=== PATIENT | female | born 1990 | race Caucasian/White ===

== ENCOUNTER 2017-06-15 01:00 | Inpatient (IN) | payer BC ==
[2017-06-15] MEDS ORDERED: Morphine 10 MG/ML Syringe IM ONE (01:59)
[2017-06-15] MEDS ORDERED: Lactated Ringers 1,000 ML IV SCH ×3 (02:00→05:01)
[2017-06-15] MEDS ORDERED: hydrOXYzine HCl 25 MG/ML SDV IM ONE (02:00)
[2017-06-15] MEDS ORDERED: Ampicillin 2 GM in Sodium Chloride 0.9% 100 ML IV ONE ×2 (02:30→02:45)
[2017-06-15] MEDS: Lactated Ringers 1,000 ML IV SCH ×2 (04:40→05:50)
[2017-06-15] MEDS ORDERED: Sodium Chloride 0.9% 10 ML Syringe FLUSH PRN (04:49)
[2017-06-15] MEDS ORDERED: Oxytocin/Lactated Ringers 10 UNIT/1,000 ML BAG IV SCH (05:00)
--- NOTE | 2017-06-15 05:05 | PCM.PREANE ---
Preanesthetic Assessment - Procedure Proposed Procedure: Labor Epidural - Anesthesia/Transfusion/Family Hx Anesthesia History: Prior Anesthesia Without Reaction Family History of Anesthesia Reaction: No Transfusion History: No Prior Transfusion(s) Intubation History: Unknown - Review of Systems General: No Symptoms Pulmonary: No Symptoms Cardiovascular: No Symptoms Gastrointestinal: Other (GERD- pepcid controls it ) Neurological: No Symptoms Other: Reports: Easy Bruising - Physical Assessment NPO Status Date: 06/15/17 NPO Status Time: 02:00 Respiratory Rate: 16 Vital Signs: Last Vital Signs Temp 37.3 C 06/15/17 01:53 Pulse 84 06/15/17 01:53 Resp 16 06/15/17 01:53 BP 135/85 06/15/17 01:53 Pulse Ox Height: 1.7 m Weight: 73.028 kg ASA Class: 2 Mental Status: Alert & Oriented x3 Airway Class: Mallampati = 1 Dentition: Reports: Normal Dentition ROM/Head Extension: Full Lungs: Clear to Auscultation, Normal Respiratory Effort Cardiovascular: Regular Rate, Regular Rhythm - Lab Values: Laboratory Last Values WBC 16.22 K/mm3 (3.98-10.04) H 06/15/17 02:12 RBC 4.01 M/mm3 (3.98-5.22) 06/15/17 02:12 Hgb 12.2 gm/L (11.2-15.7) 06/15/17 02:12 Hct 34.9 % (34.1-44.9) 06/15/17 02:12 MCV 87.0 fl (79.4-94.8) 06/15/17 02:12 MCH 30.4 pg (25.6-32.2) 06/15/17 02:12 MCHC 35.0 g/dl (32.2-35.5) 06/15/17 02:12 RDW Std Deviation 38.9 fL (36.4-46.3) 06/15/17 02:12 Plt Count 185 K/mm3 (182-369) 06/15/17 02:12 MPV 11.8 fl (9.4-12.3) 06/15/17 02:12 Neut % (Auto) 82.1 % (34.0-71.1) H 06/15/17 02:12 Lymph % (Auto) 10.8 % (19.3-51.7) L 06/15/17 02:12 [place] % (Auto) 5.9 % (4.7-12.5) 06/15/17 02:12 Eos % (Auto) 0.1 (0.7-5.8) L 06/15/17 02:12 Baso % (Auto) 0.2 % (0.1-1.2) 06/15/17 02:12 Neut # (Auto) 13.33 K/mm3 (1.56-6.13) H 06/15/17 02:12 Lymph # (Auto) 1.75 K/mm3 (1.18-3.74) 06/15/17 02:12 [place] # (Auto) 0.95 K/mm3 (0.24-0.36) H 06/15/17 02:12 Eos # (Auto) 0.02 K/mm3 (0.04-0.36) L 06/15/17 02:12 Baso # (Auto) 0.03 K/mm3 (0.01-0.08) 06/15/17 02:12 Manual Slide Review Normal smear 06/15/17 02:12 Blood Type O POSITIVE 06/15/17 02:12 Gel Antibody Screen Positive 06/15/17 02:12 - Allergies Allergies/Adverse Reactions: Allergies Allergy/AdvReac Type Severity Reaction Status Date / Time bee venom protein (honey bee) Allergy Anaphylactic Verified 05/11/17 15:35 Shock - Blood Blood Available: No Product(s) Available: None - Anesthesia Plan Pre-Op Medication Ordered: None - Acknowledgements Anesthesia Type Planned: Epidural Pt an Appropriate Candidate for the Planned Anesthesia: Yes Alternatives and Risks of Anesthesia Discussed w Pt/Guardian: Yes Pt/Guardian Understands and Agrees with Anesthesia Plan: Yes PreAnesthesia Questionnaire - Past Health History Medical/Surgical History: Denies Medical/Surgical History - SUBSTANCE USE Smoking Status *Q: Never Smoker Second Hand Smoke Exposure: No Recreational Drug Use History: No - HOME MEDS Home Medications: Home Meds EPINEPHrine [Epipen] 0.3 mg IM ASDIRECTED PRN #1 ml 06/07/15 [Rx] Famotidine [Pepcid] 20 mg PO Q12H #30 tablet 06/07/15 [Rx] PNV95/Ferrous Fumarate/FA [ Tablet] 1 each PO DAILY 05/11/17 [History] - CURRENT (IN HOUSE) MEDS Current Meds: Current Medications Ampicillin Sodium 1 gm/ Sodium (Chloride) 100 mls @ 200 mls/hr IV Q4H GERARD Lactated Ringer's (Ringers, Lactated) 1,000 mls @ 125 mls/hr IV ASDIRECTED GERARD Lactated Ringer's (Ringers, Lactated) 1,000 mls @ 100 mls/hr IV ASDIRECTED GERARD Oxytocin/Lactated Ringer's (Pitocin In Lr 10 Units/1,000 Ml) 10 unit in 1,000 mls @ 500 mls/hr IV .CONTINUOUS GERARD PRN Reason: Protocol Sodium Chloride (Saline Flush) 10 ml FLUSH ASDIRECTED PRN PRN Reason: Keep Vein Open Discontinued Medications Hydroxyzine HCl (Vistaril) 50 mg IM ONETIME ONE Stop: 06/15/17 02:01 Last Admin: 06/15/17 02:25 Dose: 50 mg Lactated Ringer's (Ringers, Lactated) 1,000 mls @ 500 mls/hr IV ASDIRECTED GERARD Stop: 06/15/17 03:00 Last Admin: 06/15/17 02:20 Dose: 500 mls/hr Lactated Ringer's (Ringers, Lactated) 1,000 mls @ 250 mls/hr IV ASDIRECTED GERARD Stop: 06/15/17 05:00 Last Admin: 06/15/17 03:20 Dose: 250 mls/hr Ampicillin Sodium 2 gm/ Sodium (Chloride) 100 mls @ 200 mls/hr IV ONETIME ONE Stop: 06/15/17 03:14 Last Admin: 06/15/17 03:00 Dose: 200 mls/hr Morphine Sulfate (Morphine) 10 mg IM ONETIME ONE Stop: 06/15/17 02:00 Last Admin: 06/15/17 02:24 Dose: 10 mg
[2017-06-15] MEDS ORDERED: Ondansetron 4 MG/2 ML SDV IVPUSH PRN (05:08)
[2017-06-15] MEDS ORDERED: diphenhydrAMINE 50 MG/ML SDV IVPUSH PRN (05:08)
[2017-06-15] MEDS ORDERED: fentaNYL 100 MCG/2 ML SDV EPIDUR PRN (05:08)
[2017-06-15] MEDS ORDERED: ePHEDrine 50 MG/ML SDV IVPUSH PRN (05:08)
[2017-06-15] MEDS ORDERED: Bupivacaine/fentaNYL/NS 100 ML Bag EPIDUR SCH (05:15)
[2017-06-15] MEDS: Ampicillin 1 GM in Sodium Chloride 0.9% 100 ML IV SCH ×3 (06:44→17:54)
--- NOTE | 2017-06-15 10:15 | PCM.LDHP ---
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 meconium-stained amnionic fluid GBS positive. O+ rubella immune syphilis negative hepatitis B surface antigen nonreactive HIV nonreactive, GC negative Chlamydia negative initial hemoglobin and hematocrit 13.8/39.5 platelets 264, 000 and by screen also -04/08/17 hemoglobin 12.61 hour OB glucose screen 71. Plan delivery Pain Score: 0 Improves with: Reports: None Worsens with: Reports: None Associated Symptoms: Reports: N - Related Data Allergies/Adverse Reactions: Allergies Allergy/AdvReac Type Severity Reaction Status Date / Time bee venom protein (honey bee) Allergy Anaphylactic Verified 05/11/17 15:35 Shock Home Medications: Home Meds EPINEPHrine [Epipen] 0.3 mg IM ASDIRECTED PRN #1 ml 06/07/15 [Rx] Famotidine [Pepcid] 20 mg PO Q12H #30 tablet 06/07/15 [Rx] PNV95/Ferrous Fumarate/FA [ Tablet] 1 each PO DAILY 05/11/17 [History] Past Medical History - Past Health History Medical/Surgical History: Denies 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 Para: 0 (0000) - Past Surgical History HEENT Surgical History: Reports: Oral Surgery Other HEENT Surgeries/Procedures: [place] teeth removed 2013 Social & Family History - Family History Family Medical History: Noncontributory - Tobacco Use Smoking Status *Q: Never Smoker Second Hand Smoke Exposure: No - Caffeine Use Caffeine Use: Reports: Other Other Caffeine Use: occasional soda/coffee - Recreational Drug Use Recreational Drug Use: No H&P Review of Systems - Review of Systems: Review Of Systems: See Below General: Reports: No Symptoms HEENT: Reports: No Symptoms Pulmonary: Reports: No Symptoms Cardiovascular: Reports: No Symptoms Gastrointestinal: Reports: No Symptoms Genitourinary: Reports: No Symptoms Musculoskeletal: Reports: No Symptoms Skin: Reports: No Symptoms Psychiatric: Reports: No Symptoms Neurological: Reports: No Symptoms Hematologic/Lymphatic: Reports: No Symptoms Immunologic: Reports: No Symptoms L&D Exam - Exam Exam: See Below - Vital Signs Vital Signs: Last Vital Signs Temp 99.2 F 06/15/17 01:53 Pulse 84 06/15/17 01:53 Resp 16 06/15/17 06:01 BP 135/85 06/15/17 01:53 Pulse Ox Weight: 161 lb - OB Specific Fundal Height In cm: 39 Contraction Duration (sec): 60 Contraction Frequency (min): 2 Contraction Intensity: Moderate to Strong Movement: Active Heart Tones: Present Heart Tones per Min: 130 Heart Rate (FHR) Variability: Moderate (6-25 bmp) Presentation: Vertex - Garcia Score Garcia Score Cervix Position: Posterior Garcia Score Consistency: Soft Garcia Score Effacement: >80% Garcia Score Dilation: > 5 cm Garcia Score Infant's Station: +1, +2 Garcia Score Total: 11 - Exam General: Alert, Oriented HEENT: Conjunctiva Clear, Mucosa Moist & [place] Neck: Supple, Trachea Midline Lungs: Clear to Auscultation, Normal Respiratory Effort Cardiovascular: Regular Rate, Regular Rhythm GI/Abdominal Exam: Normal Bowel Sounds, Soft, Non-Tender, No Organomegaly, No Distention, No Abnormal Bruit, No Mass, Pelvis Stable Genitourinary: Normal external exam, Normal bimanual exam, Normal speculum exam Extremities: Normal Inspection, Normal Range of Motion, Non-Tender, No Pedal Edema, Normal Capillary Refill Skin: Warm, Dry, Intact Neurological: Cranial Nerves Intact, Reflexes Equal Bilateral Psychiatric: Alert, Normal Affect, Normal Mood - Patient Data Lab Results Last 24 hrs: Laboratory Results - last 24 hr 06/15/17 06/15/17 Range/Units 02:12 02:12 WBC 16.22 H (3.98-10.04) K/mm3 RBC 4.01 (3.98-5.22) M/mm3 Hgb 12.2 (11.2-15.7) gm/L Hct 34.9 (34.1-44.9) % MCV 87.0 (79.4-94.8) fl MCH 30.4 (25.6-32.2) pg MCHC 35.0 (32.2-35.5) g/dl RDW Std Deviation 38.9 (36.4-46.3) fL Plt Count 185 (182-369) K/mm3 MPV 11.8 (9.4-12.3) fl Neut % (Auto) 82.1 H (34.0-71.1) % Lymph % (Auto) 10.8 L (19.3-51.7) % [place] % (Auto) 5.9 (4.7-12.5) % Eos % (Auto) 0.1 L (0.7-5.8) Baso % (Auto) 0.2 (0.1-1.2) % Neut # (Auto) 13.33 H (1.56-6.13) K/mm3 Lymph # (Auto) 1.75 (1.18-3.74) K/mm3 [place] # (Auto) 0.95 H (0.24-0.36) K/mm3 Eos # (Auto) 0.02 L (0.04-0.36) K/mm3 Baso # (Auto) 0.03 (0.01-0.08) K/mm3 Manual Slide Review Normal smear Blood Type O POSITIVE Gel Antibody Screen Positive Result Diagrams: 06/15/17 02:12 - Problem List (1) GBS carrier SNOMED Code(s): 5303735980400 ICD Code: Z22.330 - CARRIER OF GROUP B STREPTOCOCCUS Status: Acute Current Visit: Yes (2) 39 weeks gestation of SNOMED Code(s): 26486243 ICD Code: Z3A.39 - 39 WEEKS GESTATION OF Status: Acute Current Visit: Yes Problem List Initiated/Reviewed/Updated: No Orders Last 24hrs: Active Orders 24 hr Category Date Time Status Patient Status [ADT] Routine ADT 06/15/17 04:49 Active Activity as Tolerated [RC] PFP Care 06/15/17 04:49 Active Communication Order [RC] ASDIRECTED Care 06/15/17 04:49 Active Heart Tones [RC] ASDIRECTED Care 06/15/17 04:49 Active Notify Provider [RC] PFP Care 06/15/17 04:49 Active Notify Provider [RC] PRN Care 06/15/17 04:49 Active Peripheral IV Care [RC] . DIRECTED Care 06/15/17 04:49 Active Vital Signs [RC] PER UNIT ROUTINE Care 06/15/17 01:53 Active ANTIBODY IDENTIFICATION [BBK] Routine Lab 06/15/17 02:12 Results PATIENT RETYPE [BBK] Routine Lab 06/15/17 02:12 Results TYPE AND SCREEN [BBK] Routine Lab 06/15/17 02:12 Results Ampicillin 1 gm Med 06/15/17 06:30 Active Sodium Chloride 0.9% [Normal Saline] 100 ml IV Q4H Bupivacaine/fentaNYL/NS [fentaNYL/Bupivacaine/NS 2 MCG- Med 06/15/17 05:15 Active 0.125% 100 ML] 100 ml EPIDUR ASDIRECTED Lactated Ringers [Ringers, Lactated] 1,000 ml Med 06/15/17 05:00 Active IV ASDIRECTED Lactated Ringers [Ringers, Lactated] 1,000 ml Med 06/15/17 05:01 Active IV ASDIRECTED Ondansetron [Zofran] Med 06/15/17 05:08 Active 4 mg IVPUSH ONETIME PRN Oxytocin/Lactated Ringers [Pitocin in LR 10 Units/1,000 Med 06/15/17 05:00 Active ML] 10 unit in 1,000 ml IV .CONTINUOUS Sodium Chloride 0.9% [Saline Flush] Med 06/15/17 04:49 Active 10 ml FLUSH ASDIRECTED PRN diphenhydrAMINE [Benadryl] Med 06/15/17 05:08 Active 25 mg IVPUSH Q6H PRN ePHEDrine [ePHEDrine Sulfate] Med 06/15/17 05:08 Active 5 mg IVPUSH ASDIRECTED PRN fentaNYL [Sublimaze] Med 06/15/17 05:08 Active 100 mcg EPIDUR Q3H PRN Electronic Heart Tones Ext w TOCO [WOMSER] Oth 06/15/17 04:49 Ordered Routine Electronic Heart Tones Internal [WOMSER] Per Unit Oth 06/15/17 04:49 Ordered Routine Peripheral IV Insertion Adult [OM.PC] Routine Oth 06/15/17 04:49 Ordered Resuscitation Status Routine Resus Stat 06/15/17 01:52 Ordered Medication Orders Diphenhydramine HCl (Benadryl) 25 mg IVPUSH Q6H PRN PRN Reason: Pruritis Ephedrine Sulfate (Ephedrine Sulfate) 5 mg IVPUSH ASDIRECTED PRN PRN Reason: Hypotension Fentanyl (Sublimaze) 100 mcg EPIDUR Q3H PRN PRN Reason: Pain Last Admin: 06/15/17 05:36 Dose: 100 mcg Fentanyl/Bupivacaine HCl (Fentanyl/Bupivacaine/Ns 2 Mcg-0.125% 100 Ml) 100 ml EPIDUR ASDIRECTED GERARD Last Admin: 06/15/17 05:36 Dose: 100 ml Ampicillin Sodium 1 gm/ Sodium (Chloride) 100 mls @ 200 mls/hr IV Q4H GERARD Last Admin: 06/15/17 06:44 Dose: 200 mls/hr Lactated Ringer's (Ringers, Lactated) 1,000 mls @ 125 mls/hr IV ASDIRECTED GERARD Lactated Ringer's (Ringers, Lactated) 1,000 mls @ 100 mls/hr IV ASDIRECTED [facility] Last Admin: 06/15/17 05:50 Dose: 100 mls/hr Infusion: 06/15/17 05:41 Dose: 999 mls/hr Admin: 06/15/17 04:40 Dose: 999 mls/hr Oxytocin/Lactated Ringer's (Pitocin In Lr 10 Units/1,000 Ml) 10 unit in 1,000 mls @ 500 mls/hr IV .CONTINUOUS GERARD PRN Reason: Protocol Ondansetron HCl (Zofran) 4 mg IVPUSH ONETIME PRN PRN Reason: Nausea/Vomiting Sodium Chloride (Saline Flush) 10 ml FLUSH ASDIRECTED PRN PRN Reason: Keep Vein Open Assessment/Plan Comment:: Plan: Labor and delivery Meconium-stained amnionic fluid-release specialist informed will plan for release specialist to be present at delivery.
--- NOTE | 2017-06-15 13:16 | PCM.DEL ---
L & D Note - General Info Date of Service: 06/15/17 - Delivery Note Labor: Spontaneous, Augmented by ARM Delivery Outcome: Livebirth (Female liveborn Friday06/15/17 at 1252 HANNAH Apgars 8 /9 meconium-stained amnionic fluid no nuchal cord no shoulder [place] the cord was "knuckled" down around the anterior chest weight 30/7/60 grams/7 pounds 6.5 ounces) Infant Delivery Mode: Spontaneous Type of Forceps Used: None Presentation: Left Occiput Anterior (HANNAH) Nuchal Cord: None Prep: Povidone-Iodine (Betadine Anesthesia Type: Epidural Amniotic Fluid Description: Meconium Stained Episiotomy Type: None Laceration: 1st Degree (Midline just inside the introitus, also first degree left labia minora paraurethral (not bleeding not sutured) Suture type: Other (Monocryl) Suture size: 3-0 (Times one) Placenta: Intact, Spontaneous Cord: 3 Vessels Estimated Blood Loss: 500 Resuscitation Needed: No : Suctioned, Bulb Syringe, Cathether, Stimulated, Warmed, Walker Used, Warmer Used (Dr. Zafar auto radiator mechanic in attendance) Provider: Yasir Ibarra Score 1 min: 8 Score 5 min: 9 - Patient Data Vitals - Most Recent: Last Vital Signs Temp 99.2 F 06/15/17 01:53 Pulse 84 06/15/17 01:53 Resp 16 06/15/17 06:01 BP 135/85 06/15/17 01:53 Pulse Ox Weight - Most Recent: 161 lb Lab Results Last 24 Hours: Laboratory Results - last 24 hr 06/15/17 06/15/17 Range/Units 02:12 02:12 WBC 16.22 H (3.98-10.04) K/mm3 RBC 4.01 (3.98-5.22) M/mm3 Hgb 12.2 (11.2-15.7) gm/L Hct 34.9 (34.1-44.9) % MCV 87.0 (79.4-94.8) fl MCH 30.4 (25.6-32.2) pg MCHC 35.0 (32.2-35.5) g/dl RDW Std Deviation 38.9 (36.4-46.3) fL Plt Count 185 (182-369) K/mm3 MPV 11.8 (9.4-12.3) fl Neut % (Auto) 82.1 H (34.0-71.1) % Lymph % (Auto) 10.8 L (19.3-51.7) % [place] % (Auto) 5.9 (4.7-12.5) % Eos % (Auto) 0.1 L (0.7-5.8) Baso % (Auto) 0.2 (0.1-1.2) % Neut # (Auto) 13.33 H (1.56-6.13) K/mm3 Lymph # (Auto) 1.75 (1.18-3.74) K/mm3 [place] # (Auto) 0.95 H (0.24-0.36) K/mm3 Eos # (Auto) 0.02 L (0.04-0.36) K/mm3 Baso # (Auto) 0.03 (0.01-0.08) K/mm3 Manual Slide Review Normal smear Blood Type O POSITIVE Gel Antibody Screen Positive Med Orders - Current: Current Medications Diphenhydramine HCl (Benadryl) 25 mg IVPUSH Q6H PRN PRN Reason: Pruritis Ephedrine Sulfate (Ephedrine Sulfate) 5 mg IVPUSH ASDIRECTED PRN PRN Reason: Hypotension Fentanyl (Sublimaze) 100 mcg EPIDUR Q3H PRN PRN Reason: Pain Last Admin: 06/15/17 05:36 Dose: 100 mcg Fentanyl/Bupivacaine HCl (Fentanyl/Bupivacaine/Ns 2 Mcg-0.125% 100 Ml) 100 ml EPIDUR ASDIRECTED [facility] Last Admin: 06/15/17 05:36 Dose: 100 ml Ampicillin Sodium 1 gm/ Sodium (Chloride) 100 mls @ 200 mls/hr IV Q4H [facility] Last Admin: 06/15/17 10:35 Dose: 200 mls/hr Lactated Ringer's (Ringers, Lactated) 1,000 mls @ 125 mls/hr IV ASDIRECTED [facility] Last Admin: 06/15/17 10:39 Dose: 125 mls/hr Lactated Ringer's (Ringers, Lactated) 1,000 mls @ 100 mls/hr IV ASDIRECTED [facility] Last Admin: 06/15/17 05:50 Dose: 100 mls/hr Oxytocin/Lactated Ringer's (Pitocin In Lr 10 Units/1,000 Ml) 10 unit in 1,000 mls @ 500 mls/hr IV .CONTINUOUS GERARD PRN Reason: Protocol Ondansetron HCl (Zofran) 4 mg IVPUSH ONETIME PRN PRN Reason: Nausea/Vomiting Sodium Chloride (Saline Flush) 10 ml FLUSH ASDIRECTED PRN PRN Reason: Keep Vein Open Discontinued Medications Hydroxyzine HCl (Vistaril) 50 mg IM ONETIME ONE Stop: 06/15/17 02:01 Last Admin: 06/15/17 02:25 Dose: 50 mg Lactated Ringer's (Ringers, Lactated) 1,000 mls @ 500 mls/hr IV ASDIRECTED GERARD Stop: 06/15/17 03:00 Last Admin: 06/15/17 02:20 Dose: 500 mls/hr Lactated Ringer's (Ringers, Lactated) 1,000 mls @ 250 mls/hr IV ASDIRECTED [facility] Stop: 06/15/17 05:00 Last Admin: 06/15/17 03:20 Dose: 250 mls/hr Ampicillin Sodium 2 gm/ Sodium (Chloride) 100 mls @ 200 mls/hr IV ONETIME ONE Stop: 06/15/17 03:14 Last Admin: 06/15/17 03:00 Dose: 200 mls/hr Morphine Sulfate (Morphine) 10 mg IM ONETIME ONE Stop: 06/15/17 02:00 Last Admin: 06/15/17 02:24 Dose: 10 mg - Problem List & Annotations (1) GBS carrier SNOMED Code(s): 5577995918967 Code(s): Z22.330 - CARRIER OF GROUP B STREPTOCOCCUS Status: Acute Current Visit: Yes (2) 39 weeks gestation of SNOMED Code(s): 16068772 Code(s): Z3A.39 - 39 WEEKS GESTATION OF Status: Acute Current Visit: Yes (3) First degree laceration of perineum during delivery, SNOMED Code(s): 766024747 Code(s): O70.0 - FIRST DEGREE PERINEAL LACERATION DURING DELIVERY Status: Acute Current Visit: Yes (4) Periurethral laceration, delivered, current hospitalization SNOMED Code(s): 622136221 Code(s): O71.82 - OTHER SPECIFIED TRAUMA TO PERINEUM AND VULVA Status: Acute Current Visit: Yes (5) Meconium stained amniotic fluid, delivered, current hospitalization SNOMED Code(s): 311167276 Code(s): O77.0 - LABOR AND DELIVERY COMPLICATED BY MECONIUM IN AMNIOTIC FLUID Status: Acute Current Visit: Yes - Problem List Review Problem List Initiated/Reviewed/Updated: No - My Orders Last 24 Hours: My Active Orders 06/15/17 01:52 Resuscitation Status Routine 06/15/17 01:53 Vital Signs [RC] PER UNIT ROUTINE 06/15/17 02:12 ANTIBODY IDENTIFICATION [BBK] Routine PATIENT RETYPE [BBK] Routine TYPE AND SCREEN [BBK] Routine 06/15/17 04:49 Patient Status [ADT] Routine Activity as Tolerated [RC] PFP Communication Order [RC] ASDIRECTED Heart Tones [RC] ASDIRECTED Notify Provider [RC] PFP Notify Provider [RC] PRN Peripheral IV Care [RC] . DIRECTED Sodium Chloride 0.9% [Saline Flush] 10 ml FLUSH ASDIRECTED PRN Electronic Heart Tones Ext w TOCO [WOMSER] Routine Electronic Heart Tones Internal [WOMSER] Per Unit Routine Peripheral IV Insertion Adult [OM.PC] Routine 06/15/17 05:00 Lactated Ringers [Ringers, Lactated] 1,000 ml IV ASDIRECTED Oxytocin/Lactated Ringers [Pitocin in LR 10 Units/1,000 ML] 10 unit in 1,000 ml IV .CONTINUOUS 06/15/17 05:01 Lactated Ringers [Ringers, Lactated] 1,000 ml IV ASDIRECTED 06/15/17 06:30 Ampicillin 1 gm Sodium Chloride 0.9% [Normal Saline] 100 ml IV Q4H - Plan Plan:: Plan: Labor and delivery Meconium-stained amnionic fluid-auto 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
[2017-06-15] MEDS ORDERED: Witch Hazel Medicated Pads 100/Jar TOP PRN (14:51)
[2017-06-15] MEDS ORDERED: Docusate Sodium 100 MG Cap PO PRN (14:51)
[2017-06-15] MEDS ORDERED: Acetaminophen 325 MG Tab PO PRN (14:51)
[2017-06-15] MEDS ORDERED: Acetaminophen/oxyCODONE 325-5 MG Tab PO PRN (14:51)
[2017-06-15] MEDS ORDERED: Lanolin 100% Cream 7 GM Tube TOP PRN (14:51)
[2017-06-15] MEDS ORDERED: Bupivacaine 0.25% 10 ML SDV ONE (14:51)
[2017-06-15] MEDS: Famotidine 20 MG Tab PO SCH ×2 (17:54→21:15)
[2017-06-15] MEDS: Ibuprofen 600 MG Tab PO PRN (20:30)
[2017-06-16] MEDS: Ibuprofen 600 MG Tab PO PRN ×2 (04:25→10:14)
--- NOTE | 2017-06-16 08:03 | PCM.SN ---
- Free Text/Narrative Note: day 1 Afebrile uterus involuting normally no heavy vaginal bleeding no leg cramping probably home tomorrow
--- NOTE | 2017-06-16 08:36 | PCM48HPAN ---
Post Anesthesia Note - EVALUATION WITHIN 48HRS OF ANESTHETIC Vital Signs in Normal Range: Yes Patient Participated in Evaluation: Yes Respiratory Function Stable: Yes Airway Patent: Yes Cardiovascular Function Stable: Yes Hydration Status Stable: Yes Pain Control Satisfactory: Yes Nausea and Vomiting Control Satisfactory: Yes Mental Status Recovered: Yes
[2017-06-16] MEDS: Prenatal Multivitamin with Calcium/Folic Acid/Iron Tab PO SCH (10:12)
[2017-06-16] MEDS: Famotidine 20 MG Tab PO SCH ×4 (10:12→20:36)
--- NOTE | 2017-06-17 09:47 | PCM.DCSUM1 ---
Discharge Summary - Hospital Course Free Text/Narrative:: [facility] LIVE L/D Delivery Note Patient Name: SHOAIB LORENZANA Date of : 89 Patient Status: Inpatient Attending Provider: Yasir Ibarra Date: 06/15/17 13:09 Initialization Date: 06/15/17 13:09 L & D Note - General Info Date of Service: 06/15/17 - Delivery Note Labor: Spontaneous, Augmented by ARM Delivery Outcome: Livebirth (Female liveborn Friday06/15/17 at 1252 HANNAH Apgars 8 /9 meconium-stained amnionic fluid no nuchal cord no shoulder [place] the cord was "knuckled" down around the anterior chest weight 30/7/60 grams/7 pounds 6.5 ounces) Infant Delivery Mode: Spontaneous Type of Forceps Used: None Presentation: Left Occiput Anterior (HANNAH) Nuchal Cord: None Prep: Povidone-Iodine (Betadine Anesthesia Type: Epidural Amniotic Fluid Description: Meconium Stained Episiotomy Type: None Laceration: 1st Degree (Midline just inside the introitus, also first degree left labia minora paraurethral (not bleeding not sutured) Suture type: Other (Monocryl) Suture size: 3-0 (Times one) Placenta: Intact, Spontaneous Cord: 3 Vessels Estimated Blood Loss: 500 Resuscitation Needed: No [place]: Suctioned, Bulb Syringe, Cathether, Stimulated, Warmed, [place] Used, Warmer Used (Dr. Zafar welder manufacture in attendance) Provider: Yasir Ibarra Score 1 min: 8 Score 5 min: 9 - Patient Data Vitals - Most Recent: Last Vital Signs Temp 99.2 F 06/15/17 01:53 Pulse 84 06/15/17 01:53 Resp 16 06/15/17 06:01 BP 135/85 06/15/17 01:53 Pulse Ox Weight - Most Recent: 161 lb Lab Results Last 24 Hours: Laboratory Results - last 24 hr 06/15/17 06/15/17 Range/Units 02:12 02:12 WBC 16.22 H (3.98-10.04) K/mm3 RBC 4.01 (3.98-5.22) M/mm3 Hgb 12.2 (11.2-15.7) gm/L Hct 34.9 (34.1-44.9) % MCV 87.0 (79.4-94.8) fl MCH 30.4 (25.6-32.2) pg MCHC 35.0 (32.2-35.5) g/dl RDW Std Deviation 38.9 (36.4-46.3) fL Plt Count 185 (182-369) K/mm3 MPV 11.8 (9.4-12.3) fl Neut % (Auto) 82.1 H (34.0-71.1) % Lymph % (Auto) 10.8 L (19.3-51.7) % Emanuel % (Auto) 5.9 (4.7-12.5) % Eos % (Auto) 0.1 L (0.7-5.8) Baso % (Auto) 0.2 (0.1-1.2) % Neut # (Auto) 13.33 H (1.56-6.13) K/mm3 Lymph # (Auto) 1.75 (1.18-3.74) K/mm3 Emanuel # (Auto) 0.95 H (0.24-0.36) K/mm3 Eos # (Auto) 0.02 L (0.04-0.36) K/mm3 Baso # (Auto) 0.03 (0.01-0.08) K/mm3 Manual Slide Review Normal smear Blood Type O POSITIVE Gel Antibody Screen Positive Med Orders - Current: Current Medications Diphenhydramine HCl (Benadryl) 25 mg IVPUSH Q6H PRN PRN Reason: Pruritis Ephedrine Sulfate (Ephedrine Sulfate) 5 mg IVPUSH ASDIRECTED PRN PRN Reason: Hypotension Fentanyl (Sublimaze) 100 mcg EPIDUR Q3H PRN PRN Reason: Pain Last Admin: 06/15/17 05:36 Dose: 100 mcg Fentanyl/Bupivacaine HCl (Fentanyl/Bupivacaine/Ns 2 Mcg-0.125% 100 Ml) 100 ml EPIDUR ASDIRECTED GERARD Last Admin: 06/15/17 05:36 Dose: 100 ml Ampicillin Sodium 1 gm/ Sodium (Chloride) 100 mls @ 200 mls/hr IV Q4H GERARD Last Admin: 06/15/17 10:35 Dose: 200 mls/hr Lactated Ringer's (Ringers, Lactated) 1,000 mls @ 125 mls/hr IV ASDIRECTED [facility] Last Admin: 06/15/17 10:39 Dose: 125 mls/hr Lactated Ringer's (Ringers, Lactated) 1,000 mls @ 100 mls/hr IV ASDIRECTED [facility] Last Admin: 06/15/17 05:50 Dose: 100 mls/hr Oxytocin/Lactated Ringer's (Pitocin In Lr 10 Units/1,000 Ml) 10 unit in 1,000 mls @ 500 mls/hr IV .CONTINUOUS GERARD PRN Reason: Protocol Ondansetron HCl (Zofran) 4 mg IVPUSH ONETIME PRN PRN Reason: Nausea/Vomiting Sodium Chloride (Saline Flush) 10 ml FLUSH ASDIRECTED PRN PRN Reason: Keep Vein Open Discontinued Medications Hydroxyzine HCl (Vistaril) 50 mg IM ONETIME ONE Stop: 06/15/17 02:01 Last Admin: 06/15/17 02:25 Dose: 50 mg Lactated Ringer's (Ringers, Lactated) 1,000 mls @ 500 mls/hr IV ASDIRECTED [facility] Stop: 06/15/17 03:00 Last Admin: 06/15/17 02:20 Dose: 500 mls/hr Lactated Ringer's (Ringers, Lactated) 1,000 mls @ 250 mls/hr IV ASDIRECTED [facility] Stop: 06/15/17 05:00 Last Admin: 06/15/17 03:20 Dose: 250 mls/hr Ampicillin Sodium 2 gm/ Sodium (Chloride) 100 mls @ 200 mls/hr IV ONETIME ONE Stop: 06/15/17 03:14 Last Admin: 06/15/17 03:00 Dose: 200 mls/hr Morphine Sulfate (Morphine) 10 mg IM ONETIME ONE Stop: 06/15/17 02:00 Last Admin: 06/15/17 02:24 Dose: 10 mg - Problem List & Annotations (1) GBS carrier SNOMED Code(s): 3933107397544 Code(s): Z22.330 - CARRIER OF GROUP B STREPTOCOCCUS Status: Acute Current Visit: Yes (2) 39 weeks gestation of SNOMED Code(s): 52909637 Code(s): Z3A.39 - 39 WEEKS GESTATION OF Status: Acute Current Visit: Yes (3) First degree laceration of perineum during delivery, SNOMED Code(s): 693930559 Code(s): O70.0 - FIRST DEGREE PERINEAL LACERATION DURING DELIVERY Status: Acute Current Visit: Yes (4) Periurethral laceration, delivered, current hospitalization SNOMED Code(s): 589036122 Code(s): O71.82 - OTHER SPECIFIED TRAUMA TO PERINEUM AND VULVA Status: Acute Current Visit: Yes (5) Meconium stained amniotic fluid, delivered, current hospitalization SNOMED Code(s): 143566225 Code(s): O77.0 - LABOR AND DELIVERY COMPLICATED BY MECONIUM IN AMNIOTIC FLUID Status: Acute Current Visit: Yes - Problem List Review Problem List Initiated/Reviewed/Updated: No - My Orders Last 24 Hours: My Active Orders 06/15/17 01:52 Resuscitation Status Routine 06/15/17 01:53 Vital Signs [RC] PER UNIT ROUTINE 06/15/17 02:12 ANTIBODY IDENTIFICATION [BBK] Routine PATIENT RETYPE [BBK] Routine TYPE AND SCREEN [BBK] Routine 06/15/17 04:49 Patient Status [ADT] Routine Activity as Tolerated [RC] PFP Communication Order [RC] ASDIRECTED Heart Tones [RC] ASDIRECTED Notify Provider [RC] PFP Notify Provider [RC] PRN Peripheral IV Care [RC] . DIRECTED Sodium Chloride 0.9% [Saline Flush] 10 ml FLUSH ASDIRECTED PRN Electronic Heart Tones Ext w TOCO [WOMSER] Routine Electronic Heart Tones Internal [WOMSER] Per Unit Routine Peripheral IV Insertion Adult [OM.PC] Routine 06/15/17 05:00 Lactated Ringers [Ringers, Lactated] 1,000 ml IV ASDIRECTED Oxytocin/Lactated Ringers [Pitocin in LR 10 Units/1,000 ML] 10 unit in 1,000 ml IV .CONTINUOUS 06/15/17 05:01 Lactated Ringers [Ringers, Lactated] 1,000 ml IV ASDIRECTED 06/15/17 06:30 Ampicillin 1 gm Sodium Chloride 0.9% [Normal Saline] 100 ml IV Q4H - Plan Plan:: Plan: Labor and delivery Meconium-stained amnionic fluid-welder manufacture informed will plan for welder manufacture to be present at delivery. HPI Initial Comments: [facility] LIVE L/D Delivery Note Patient Name: SHOAIB LORENZANA Date of : 89 Patient Status: Inpatient Attending Provider: Yasir Ibarra Date: 06/15/17 13:09 Initialization Date: 06/15/17 13:09 L & D Note - General Info Date of Service: 06/15/17 - Delivery Note Labor: Spontaneous, Augmented by ARM Delivery Outcome: Livebirth (Female liveborn Friday06/15/17 at 1252 [place] Apgars 8 /9 meconium-stained amnionic fluid no nuchal cord no shoulder [place] the cord was "knuckled" down around the anterior chest weight 30/7/60 grams/7 pounds 6.5 ounces) Infant Delivery Mode: Spontaneous Type of Forceps Used: None Presentation: Left Occiput Anterior (HANNAH) Nuchal Cord: None Prep: Povidone-Iodine (Betadine Anesthesia Type: Epidural Amniotic Fluid Description: Meconium Stained Episiotomy Type: None Laceration: 1st Degree (Midline just inside the introitus, also first degree left labia minora paraurethral (not bleeding not sutured) Suture type: Other (Monocryl) Suture size: 3-0 (Times one) Placenta: Intact, Spontaneous Cord: 3 Vessels Estimated Blood Loss: 500 Resuscitation Needed: No : Suctioned, Bulb Syringe, Cathether, Stimulated, Warmed, [place] Used, Warmer Used (Dr. Zafar welder manufacture in attendance) Provider: Yasir Ibarra Score 1 min: 8 Score 5 min: 9 - Patient Data Vitals - Most Recent: Last Vital Signs Temp 99.2 F 06/15/17 01:53 Pulse 84 06/15/17 01:53 Resp 16 06/15/17 06:01 BP 135/85 06/15/17 01:53 Pulse Ox Weight - Most Recent: 161 lb Lab Results Last 24 Hours: Laboratory Results - last 24 hr 06/15/17 06/15/17 Range/Units 02:12 02:12 WBC 16.22 H (3.98-10.04) K/mm3 RBC 4.01 (3.98-5.22) M/mm3 Hgb 12.2 (11.2-15.7) gm/L Hct 34.9 (34.1-44.9) % MCV 87.0 (79.4-94.8) fl MCH 30.4 (25.6-32.2) pg MCHC 35.0 (32.2-35.5) g/dl RDW Std Deviation 38.9 (36.4-46.3) fL Plt Count 185 (182-369) K/mm3 MPV 11.8 (9.4-12.3) fl Neut % (Auto) 82.1 H (34.0-71.1) % Lymph % (Auto) 10.8 L (19.3-51.7) % Emanuel % (Auto) 5.9 (4.7-12.5) % Eos % (Auto) 0.1 L (0.7-5.8) Baso % (Auto) 0.2 (0.1-1.2) % Neut # (Auto) 13.33 H (1.56-6.13) K/mm3 Lymph # (Auto) 1.75 (1.18-3.74) K/mm3 Emanuel # (Auto) 0.95 H (0.24-0.36) K/mm3 Eos # (Auto) 0.02 L (0.04-0.36) K/mm3 Baso # (Auto) 0.03 (0.01-0.08) K/mm3 Manual Slide Review Normal smear Blood Type O POSITIVE Gel Antibody Screen Positive Med Orders - Current: Current Medications Diphenhydramine HCl (Benadryl) 25 mg IVPUSH Q6H PRN PRN Reason: Pruritis Ephedrine Sulfate (Ephedrine Sulfate) 5 mg IVPUSH ASDIRECTED PRN PRN Reason: Hypotension Fentanyl (Sublimaze) 100 mcg EPIDUR Q3H PRN PRN Reason: Pain Last Admin: 06/15/17 05:36 Dose: 100 mcg Fentanyl/Bupivacaine HCl (Fentanyl/Bupivacaine/Ns 2 Mcg-0.125% 100 Ml) 100 ml EPIDUR ASDIRECTED GERARD Last Admin: 06/15/17 05:36 Dose: 100 ml Ampicillin Sodium 1 gm/ Sodium (Chloride) 100 mls @ 200 mls/hr IV Q4H GERARD Last Admin: 06/15/17 10:35 Dose: 200 mls/hr Lactated Ringer's (Ringers, Lactated) 1,000 mls @ 125 mls/hr IV ASDIRECTED [facility] Last Admin: 06/15/17 10:39 Dose: 125 mls/hr Lactated Ringer's (Ringers, Lactated) 1,000 mls @ 100 mls/hr IV ASDIRECTED [facility] Last Admin: 06/15/17 05:50 Dose: 100 mls/hr Oxytocin/Lactated Ringer's (Pitocin In Lr 10 Units/1,000 Ml) 10 unit in 1,000 mls @ 500 mls/hr IV .CONTINUOUS GERARD PRN Reason: Protocol Ondansetron HCl (Zofran) 4 mg IVPUSH ONETIME PRN PRN Reason: Nausea/Vomiting Sodium Chloride (Saline Flush) 10 ml FLUSH ASDIRECTED PRN PRN Reason: Keep Vein Open Discontinued Medications Hydroxyzine HCl (Vistaril) 50 mg IM ONETIME ONE Stop: 06/15/17 02:01 Last Admin: 06/15/17 02:25 Dose: 50 mg Lactated Ringer's (Ringers, Lactated) 1,000 mls @ 500 mls/hr IV ASDIRECTED [facility] Stop: 06/15/17 03:00 Last Admin: 06/15/17 02:20 Dose: 500 mls/hr Lactated Ringer's (Ringers, Lactated) 1,000 mls @ 250 mls/hr IV ASDIRECTED [facility] Stop: 06/15/17 05:00 Last Admin: 06/15/17 03:20 Dose: 250 mls/hr Ampicillin Sodium 2 gm/ Sodium (Chloride) 100 mls @ 200 mls/hr IV ONETIME ONE Stop: 06/15/17 03:14 Last Admin: 06/15/17 03:00 Dose: 200 mls/hr Morphine Sulfate (Morphine) 10 mg IM ONETIME ONE Stop: 06/15/17 02:00 Last Admin: 06/15/17 02:24 Dose: 10 mg - Problem List & Annotations (1) GBS carrier SNOMED Code(s): 9518169895630 Code(s): Z22.330 - CARRIER OF GROUP B STREPTOCOCCUS Status: Acute Current Visit: Yes (2) 39 weeks gestation of SNOMED Code(s): 52023212 Code(s): Z3A.39 - 39 WEEKS GESTATION OF Status: Acute Current Visit: Yes (3) First degree laceration of perineum during delivery, SNOMED Code(s): 436911046 Code(s): O70.0 - FIRST DEGREE PERINEAL LACERATION DURING DELIVERY Status: Acute Current Visit: Yes (4) Periurethral laceration, delivered, current hospitalization SNOMED Code(s): 265620577 Code(s): O71.82 - OTHER SPECIFIED TRAUMA TO PERINEUM AND VULVA Status: Acute Current Visit: Yes (5) Meconium stained amniotic fluid, delivered, current hospitalization SNOMED Code(s): 133861091 Code(s): O77.0 - LABOR AND DELIVERY COMPLICATED BY MECONIUM IN AMNIOTIC FLUID Status: Acute Current Visit: Yes - Problem List Review Problem List Initiated/Reviewed/Updated: No - My Orders Last 24 Hours: My Active Orders 06/15/17 01:52 Resuscitation Status Routine 06/15/17 01:53 Vital Signs [RC] PER UNIT ROUTINE 06/15/17 02:12 ANTIBODY IDENTIFICATION [BBK] Routine PATIENT RETYPE [BBK] Routine TYPE AND SCREEN [BBK] Routine 06/15/17 04:49 Patient Status [ADT] Routine Activity as Tolerated [RC] PFP Communication Order [RC] ASDIRECTED Heart Tones [RC] ASDIRECTED Notify Provider [RC] PFP Notify Provider [RC] PRN Peripheral IV Care [RC] . DIRECTED Sodium Chloride 0.9% [Saline Flush] 10 ml FLUSH ASDIRECTED PRN Electronic Heart Tones Ext w TOCO [WOMSER] Routine Electronic Heart Tones Internal [WOMSER] Per Unit Routine Peripheral IV Insertion Adult [OM.PC] Routine 06/15/17 05:00 Lactated Ringers [Ringers, Lactated] 1,000 ml IV ASDIRECTED Oxytocin/Lactated Ringers [Pitocin in LR 10 Units/1,000 ML] 10 unit in 1,000 ml IV .CONTINUOUS 06/15/17 05:01 Lactated Ringers [Ringers, Lactated] 1,000 ml IV ASDIRECTED 06/15/17 06:30 Ampicillin 1 gm Sodium Chloride 0.9% [Normal Saline] 100 ml IV Q4H - Plan Plan:: Plan: Labor and delivery Meconium-stained amnionic fluid-welder manufacture informed will plan for welder manufacture to be present at delivery. Brief History: [facility] LIVE . L/D Delivery Note. Patient Name: Eliezer LORENZANA Record Number: [id number]. Date of : Patient Status: Inpatient. Attending Provider: Yasir Ibarraount Number: [id number]. Date: 06/15/17 13:09Initialization Date: 06/15/17 13:09. L & D Note. - General Info. Date of Service: 06/15/17. - Delivery Note. Labor: Spontaneous, Augmented by ARM. Delivery Outcome: Livebirth (Female liveborn Friday06/15/17 at 1252 [place] Apgars 8/9 meconium-stained amnionic fluid no nuchal cord no shoulder [place] the cord was "knuckled" down around the anterior chest weight 30/7/60 grams/7 pounds 6.5 ounces). Infant Delivery Mode : Spontaneous. Type of Forceps Used: None. Presentation: Left Occiput Anterior (HANNAH). Nuchal Cord: None. Prep: Povidone-Iodine (Betadine. Anesthesia Type: Epidural. Amniotic Fluid Description: Meconium Stained. Episiotomy Type: None. Laceration: 1st Degree (Midline just inside the introitus, also first degree left labia minora paraurethral (not bleeding not sutured). Suture type: Other (Monocryl). Suture size: 3-0 (Times one). Placenta: Intact, Spontaneous. Cord: 3 Vessels. Estimated Blood Loss: 500. Resuscitation Needed: No. [place]: Suctioned, Bulb Syringe, Cathether, Stimulated, Warmed, [place] Used, Warmer Used (Dr. Zafar welder manufacture in attendance). Provider: Yasir Ibarra. Score 1 min: 8. Score 5 min: 9. - Patient Data. Vitals - Most Recent: Last Vital Signs. Temp 99.2 F 06/15/17 01:53. Pulse 84 06/15/17 01:53. Resp 16 06:01. BP 135/85 06/15/17 01:53. Pulse Ox. Weight - Most Recent: 161 lb. Lab Results Last 24 Hours: Laboratory Results - last 24 hr. 06/15/1708/Range/Units. 02:1202:12. WBC 16.22 H (3.98-10.04) K/mm3. RBC 4.01 (3.98- 5.22) M/mm3. Hgb 12.2 (11.2-15.7) gm/L. Hct 34.9 (34.1-44.9) %. MCV 87.0 ( 79.4-94.8) fl. MCH 30.4 (25.6-32.2) pg. MCHC 35.0 (32.2-35.5) g/dl. RDW Std Deviation 38.9 (36.4-46.3) fL. Plt Count 185 (182-369) K/mm3. MPV 11.8 ( 9.4-12.3) fl. Neut % (Auto) 82.1 H (34.0-71.1) %. Lymph % (Auto) 10.8 L ( 19.3-51.7) %. Emanuel % (Auto) 5.9 (4.7-12.5) %. Eos % (Auto) 0.1 L (0.7-5.8). Baso % (Auto) 0.2 (0.1-1.2) %. Neut # (Auto) 13.33 H (1.56-6.13) K/mm3. Lymph # (Auto) 1.75 (1.18-3.74) K/mm3. Emanuel # (Auto) 0.95 H (0.24-0.36) K/ mm3. Eos # (Auto) 0.02 L (0.04-0.36) K/mm3. Baso # (Auto) 0.03 (0.01-0.08) K /mm3. Manual Slide Review Normal smear. Blood Type O POSITIVE. Gel Antibody Screen Positive. Med Orders - Current: Current Medications. Diphenhydramine HCl (Benadryl) 25 mg IVPUSH Q6H PRN. PRN Reason: Pruritis. Ephedrine Sulfate (Ephedrine Sulfate) 5 mg IVPUSH ASDIRECTED PRN. PRN Reason: Hypotension. Fentanyl (Sublimaze) 100 mcg EPIDUR Q3H PRN. PRN Reason: Pain. Last Admin: 05:36 Dose: 100 mcg. Fentanyl/Bupivacaine HCl (Fentanyl/Bupivacaine/Ns 2 Mcg-0.125% 100 Ml) 100 ml EPIDUR ASDIRECTED GERARD. Last Admin: 06/15/17 05:36 Dose: 100 ml. Ampicillin Sodium 1 gm/ Sodium (Chloride) 100 mls @ 200 mls/hr IV Q4H GERARD. Last Admin: 06/15/17 10:35 Dose: 200 mls/hr. Lactated Ringer's ( Ringers, Lactated) 1,000 mls @ 125 mls/hr IV ASDIRECTED GERARD. Last Admin: 06/15 10:39 Dose: 125 mls/hr. Lactated Ringer's (Ringers, Lactated) 1,000 mls @ 100 mls/hr IV ASDIRECTED GERARD. Last Admin: 06/15/17 05:50 Dose: 100 mls/hr. Oxytocin/Lactated Ringer's (Pitocin In Lr 10 Units/1,000 Ml) 10 unit in 1,000 mls @ 500 mls/hr IV .CONTINUOUS GERARD. PRN Reason: Protocol. Ondansetron HCl ( Zofran) 4 mg IVPUSH ONETIME PRN. PRN Reason: Nausea/Vomiting. Sodium Chloride (Saline Flush) 10 ml FLUSH ASDIRECTED PRN. PRN Reason: Keep Vein Open. Discontinued Medications. Hydroxyzine HCl (Vistaril) 50 mg IM ONETIME ONE. Stop: 06/15/17 02:01. Last Admin: 06/15/17 02:25 Dose: 50 mg. Lactated Ringer's (Ringers, Lactated) 1,000 mls @ 500 mls/hr IV ASDIRECTED GERARD. Stop: 06/15/17 03:00. Last Admin: 06/15/17 02:20 Dose: 500 mls/hr. Lactated Ringer' s (Ringers, Lactated) 1,000 mls @ 250 mls/hr IV ASDIRECTED GERARD. Stop: 05:00. Last Admin: 06/15/17 03:20 Dose: 250 mls/hr. Ampicillin Sodium 2 gm / Sodium (Chloride) 100 mls @ 200 mls/hr IV ONETIME ONE. Stop: 06/15/17 03: 14. Last Admin: 06/15/17 03:00 Dose: 200 mls/hr. Morphine Sulfate (Morphine) 10 mg IM ONETIME ONE. Stop: 06/15/17 02:00. Last Admin: 06/15/17 02:24 Dose : 10 mg. - Problem List & Annotations. (1) GBS carrier. SNOMED Code(s): 8676051889319. Code(s): Z22.330 - CARRIER OF GROUP B STREPTOCOCCUS Status: Acute Current Visit: Yes. (2) 39 weeks gestation of . SNOMED Code(s ): 19195842. Code(s): Z3A.39 - 39 WEEKS GESTATION OF Status: Acute Current Visit: Yes. (3) First degree laceration of perineum during delivery , . SNOMED Code(s): 548600970. Code(s): O70.0 - FIRST DEGREE PERINEAL LACERATION DURING DELIVERY Status: Acute Current Visit: Yes. (4) Periurethral laceration, delivered, current hospitalization. SNOMED Code(s): 163225757. Code(s): O71.82 - OTHER SPECIFIED TRAUMA TO PERINEUM AND VULVA Status: Acute Current Visit: Yes. (5) Meconium stained amniotic fluid, delivered, current hospitalization. SNOMED Code(s): 342516771. Code(s): O77.0 - LABOR AND DELIVERY COMPLICATED BY MECONIUM IN AMNIOTIC FLUID Status: Acute Current Visit: Yes. - Problem List Review. Problem List Initiated/Reviewed/ Updated: No. - My Orders. Last 24 Hours: My Active Orders. 06/15/17 01:52. Resuscitation Status Routine. 06/15/17 01:53. Vital Signs [RC] PER UNIT ROUTINE. 06/15/17 02:12. ANTIBODY IDENTIFICATION [BBK] Routine. PATIENT RETYPE [BBK] Routine. TYPE AND SCREEN [BBK] Routine. 06/15/17 04:49. Patient Status [ADT] Routine. Activity as Tolerated [RC] PFP. Communication Order [RC ] ASDIRECTED. Heart Tones [RC] ASDIRECTED. Notify Provider [RC] PFP. Notify Provider [RC] PRN. Peripheral IV Care [RC] . DIRECTED. Sodium Chloride 0.9% [Saline Flush] 10 ml FLUSH ASDIRECTED PRN. Electronic Heart Tones Ext w TOCO [WOMSER] Routine. Electronic Heart Tones Internal [WOMSER] Per Unit Routine. Peripheral IV Insertion Adult [OM.PC] Routine. 05:00. Lactated Ringers [Ringers, Lactated] 1,000 ml IV ASDIRECTED. Oxytocin/Lactated Ringers [Pitocin in LR 10 Units/1,000 ML] 10 unit in 1,000 ml IV .CONTINUOUS. 06/15/17 05:01. Lactated Ringers [Ringers, Lactated] 1,000 ml IV ASDIRECTED. 06/15/17 06:30. Ampicillin 1 gm Sodium Chloride 0.9% [Normal Saline] 100 ml IV Q4H. - Plan. Plan:: Plan: Labor and delivery. Meconium- stained amnionic fluid-welder manufacture informed will plan for welder manufacture to be present at delivery. - Discharge Data Discharge Date: 06/17/17 Discharge Disposition: Home, Self-Care 01 Condition: Good - Discharge Diagnosis/Problem(s) (1) GBS carrier SNOMED Code(s): 0001449068699 ICD Code: Z22.330 - CARRIER OF GROUP B STREPTOCOCCUS Status: Acute Current Visit: Yes (2) 39 weeks gestation of SNOMED Code(s): 72306364 ICD Code: Z3A.39 - 39 WEEKS GESTATION OF Status: Acute Current Visit: Yes (3) First degree laceration of perineum during delivery, SNOMED Code(s): 175561994 ICD Code: O70.0 - FIRST DEGREE PERINEAL LACERATION DURING DELIVERY Status: Acute Current Visit: Yes (4) Periurethral laceration, delivered, current hospitalization SNOMED Code(s): 474215601 ICD Code: O71.82 - OTHER SPECIFIED TRAUMA TO PERINEUM AND VULVA Status: Acute Current Visit: Yes (5) Meconium stained amniotic fluid, delivered, current hospitalization SNOMED Code(s): 613322422 ICD Code: O77.0 - LABOR AND DELIVERY COMPLICATED BY MECONIUM IN AMNIOTIC FLUID Status: Acute Current Visit: Yes - Patient Summary/Data Complications: None Consults: None Hospital Course: Uneventful - Patient Instructions Diet: Regular Diet as Tolerated Driving: May Drive Today (Patient has to drive today because to cars at the hospital.) Showering/Bathing: May Shower, No Tub Bathing/Swimming (For 6 weeks) Notify Provider of: Fever, Increased Pain, Swelling and Redness, Drainage, Nausea and/or Vomiting - Discharge Plan Home Medications: Home Meds EPINEPHrine [Epipen 2-Dewey] 0.3 mg IM ASDIRECTED PRN #1 ml 06/07/15 [Rx] Famotidine [Pepcid] 20 mg PO Q12H #30 tablet 06/07/15 [Rx] Acetaminophen [Tylenol] 650 mg PO Q6H PRN #0 tablet 06/17/17 [Rx] Docusate Sodium [Colace] 100 mg PO BID PRN #0 cap 06/17/17 [Rx] Ibuprofen [IJD: Ibuprofen] 200 - 600 mg PO Q6H PRN #0 tablet 06/17/17 [Rx] Vit with Ca/FA/Iron [ Plus Iron] 1 each PO DAILY tablet [Rx] Elly Lamas [Tucks] 1 pad TOP ASDIRECTED PRN #0 pad 06/17/17 [Rx] Patient Handouts: , Home Care Instructions for Mom Referrals: Suki Franco MD [Physician] - (6 weeks) - Discharge Summary/Plan Comment DC Time >30 min.: No - Patient Data Vitals - Most Recent: Last Vital Signs Temp 97.7 F 06/17/17 03:22 Pulse 64 06/17/17 03:22 Resp 16 06/17/17 03:22 BP 116/71 06/17/17 03:22 Pulse Ox 94 L 06/17/17 03:22 Weight - Most Recent: 161 lb I&O - Last 24 hours: Intake & Output 06/16/17 06/17/17 06/17/17 22:59 06:59 14:59 Intake Total 320 Balance 320 Med Orders - Current: Current Medications Acetaminophen (Tylenol) 650 mg PO Q4H PRN PRN Reason: mild pain or fever Docusate Sodium (Colace) 100 mg PO BID PRN PRN Reason: Constipation Emollient Ointment (Lansinoh Hpa) 0 gm TOP ASDIRECTED PRN PRN Reason: Sore Nipples Famotidine (Pepcid) 20 mg PO BID GERARD Last Admin: 06/16/17 20:36 Dose: Not Given Ibuprofen (Motrin) 600 mg PO Q4H PRN PRN Reason: Mild pain or fever Last Admin: 06/16/17 10:14 Dose: 600 mg Oxycodone/Acetaminophen (Percocet 325-5 Mg) 2 tab PO Q4H PRN PRN Reason: Pain (moderate 4-6) Prenat Multivit/Field Clerk/Iron/Folic Ac ( Plus Iron) 1 each PO DAILY [facility] Last Admin: 06/16/17 10:12 Dose: 1 each Elly Whiteel (Tucks) 1 pad TOP ASDIRECTED PRN PRN Reason: Hemorrhoid pain Discontinued Medications Bupivacaine HCl (Sensorcaine-Mpf 0.25%) 10 ml .ROUTE .STK-MED ONE Stop: 06/15/17 14:52 Diphenhydramine HCl (Benadryl) 25 mg IVPUSH Q6H PRN PRN Reason: Pruritis Ephedrine Sulfate (Ephedrine Sulfate) 5 mg IVPUSH ASDIRECTED PRN PRN Reason: Hypotension Fentanyl (Sublimaze) 100 mcg EPIDUR Q3H PRN PRN Reason: Pain Last Admin: 06/15/17 05:36 Dose: 100 mcg Fentanyl/Bupivacaine HCl (Fentanyl/Bupivacaine/Ns 2 Mcg-0.125% 100 Ml) 100 ml EPIDUR ASDIRECTED [facility] Last Admin: 06/15/17 05:36 Dose: 100 ml Hydroxyzine HCl (Vistaril) 50 mg IM ONETIME ONE Stop: 06/15/17 02:01 Last Admin: 06/15/17 02:25 Dose: 50 mg Lactated Ringer's (Ringers, Lactated) 1,000 mls @ 500 mls/hr IV ASDIRECTED [facility] Stop: 06/15/17 03:00 Last Admin: 06/15/17 02:20 Dose: 500 mls/hr Ampicillin Sodium 1 gm/ Sodium (Chloride) 100 mls @ 200 mls/hr IV Q4H [facility] Last Admin: 06/15/17 17:54 Dose: Not Given Lactated Ringer's (Ringers, Lactated) 1,000 mls @ 250 mls/hr IV ASDIRECTED [facility] Stop: 06/15/17 05:00 Last Admin: 06/15/17 03:20 Dose: 250 mls/hr Lactated Ringer's (Ringers, Lactated) 1,000 mls @ 125 mls/hr IV ASDIRECTED [facility] Last Admin: 06/15/17 10:39 Dose: 125 mls/hr Ampicillin Sodium 2 gm/ Sodium (Chloride) 100 mls @ 200 mls/hr IV ONETIME ONE Stop: 06/15/17 03:14 Last Admin: 06/15/17 03:00 Dose: 200 mls/hr Lactated Ringer's (Ringers, Lactated) 1,000 mls @ 100 mls/hr IV ASDIRECTED GERARD Last Admin: 06/15/17 05:50 Dose: 100 mls/hr Oxytocin/Lactated Ringer's (Pitocin In Lr 10 Units/1,000 Ml) 10 unit in 1,000 mls @ 500 mls/hr IV .CONTINUOUS GERARD PRN Reason: Protocol Last Admin: 06/15/17 12:55 Dose: 500 mls/hr Morphine Sulfate (Morphine) 10 mg IM ONETIME ONE Stop: 06/15/17 02:00 Last Admin: 06/15/17 02:24 Dose: 10 mg Ondansetron HCl (Zofran) 4 mg IVPUSH ONETIME PRN PRN Reason: Nausea/Vomiting Sodium Chloride (Saline Flush) 10 ml FLUSH ASDIRECTED PRN PRN Reason: Keep Vein Open *Q Meaningful Use (DIS) - VTE *Q VTE Criteria *Q: - Stroke *Q Stroke Criteria *Q: - AMI *Q AMI Criteria *Q:
[2017-06-17] MEDS: Prenatal Multivitamin with Calcium/Folic Acid/Iron Tab PO SCH (10:29)
[2017-06-17] MEDS: Famotidine 20 MG Tab PO SCH (10:29)
[2017-06-17 11:21] VITALS: BP 106/89
== END 2017-06-17 11:40 | disposition home or self-care (01) | DRG 560 ==
LOC: JD.OBCHECK 01:00 → JD.OB 01:04 → JD.OBCHECK 04:49 → JD.OB 04:50 → OBSVTOIN 12:52 → JD.OB 12:59
PROVIDERS: ADMIT Obstetrics & Gynecology; ATTEND Obstetrics & Gynecology
PROC: 10E0XZZ Delivery of Products of Conception, External Approach (ICD-10-PCS; principal; 2017-06-15)
PROC: 0HQ9XZZ Repair Perineum Skin, External Approach (ICD-10-PCS; 2017-06-15)
PROC: 10907ZC Drainage of Amniotic Fluid, Therapeutic from Products of Conception, Via Natural or Artificial Opening (ICD-10-PCS; 2017-06-15)
PROC: 00HU33Z Insertion of Infusion Device into Spinal Canal, Percutaneous Approach (ICD-10-PCS; 2017-06-15)
PROC: 3E0R3CZ (ICD-10-PCS; 2017-06-15)
DX: O99.824 Streptococcus B carrier state complicating childbirth (principal); O77.0 Labor and delivery complicated by meconium in amniotic fluid; Z3A.39 39 weeks gestation of pregnancy; Z37.0 Single live birth; Z91.030 Bee allergy status; O70.0 First degree perineal laceration during delivery
CPT/HCPCS: 01967; 36415; 85025; 86850; 86870; 86900; 86901; A9270-GY; J0290; J2270; J2590; J3010; J3410; J7030; J7120

== ENCOUNTER 2019-03-16 07:09 | Emergency (ER) | payer BC ==
--- NOTE | 2019-03-16 07:33 | EDM.PDOC ---
ED HPI GENERAL MEDICAL PROBLEM - General Chief Complaint: Abdominal Pain Stated Complaint: ABDOMINAL PAIN Time Seen by Provider: 03/16/19 07:28 Source of Information: Reports: Patient History Limitations: Reports: No Limitations - History of Present Illness INITIAL COMMENTS - FREE TEXT/NARRATIVE: 28-year-old female presents to the ED with diffuse upper abdominal pain primarily right upper quadrant radiating through to her back. Pain seems to radiate across the upper abdomen epigastrium and left upper quadrant. States she 's had it since eating supper last night. Developed pressure discomfort right upper quadrant that about 11:00 last night before bed and was up most of the night due to the discomfort. Associated dry heaves and nausea but no vomiting. States she has irritable bowel syndrome. Alternate between diarrhea and constipation. Mostly diarrhea overnight. No fever although she feels chilled and hot prickly at times. Vision no she has gallstones and is apparently awaiting surgical consult for possible cholecystectomy. She's been having intermittent right upper quadrant abdominal pain for the last 2 years or more since she was with her daughter who is age 2. She has confirmed multiple gallstones on ultrasound. Onset: Sudden Onset Date: 03/15/19 Onset Time: 23:00 Duration: Hour(s): Location: Reports: Abdomen (Right upper quadrant and epigastrium primarily.), Radiates to (Radiates to intrascapular area and mid back) Quality: Reports: Ache (.), Sharp, Stabbing, Other Severity: Moderate (Mild colicky component to the pain 7 on a 10) Improves with: Reports: None Worsens with: Reports: None Context: Denies: Activity, Exercise, Lifting, Sick Contact, Trauma, Other Associated Symptoms: Reports: Nausea/Vomiting (Nausea without vomiting.). Denies: Shortness of Breath Treatments [employer]: Reports: Other (see below) (Aspirin with no relief.) - Related Data Allergies Allergy/AdvReac Type Severity Reaction Status Date / Time bee venom protein (honey bee) Allergy Anaphylactic Verified 03/16/19 07:29 Shock Home Meds: Home Meds EPINEPHrine [Epipen 2-Dewey] 0.3 mg IM ASDIRECTED PRN #1 ml 06/07/15 [Rx] Acetaminophen [Tylenol] 650 mg PO Q6H PRN #0 tablet 06/17/17 [Rx] Ibuprofen [IJD: Ibuprofen] 200 - 600 mg PO Q6H PRN #0 tablet 06/17/17 [Rx] Aspirin 325 mg PO DAILY PRN 03/16/19 [History] Dicyclomine [Bentyl] 20 mg PO Q6H PRN #5 tablet 03/16/19 [Rx] Ondansetron [Zofran] 4 mg BUCCAL Q6H PRN #8 tab 03/16/19 [Rx] oxyCODONE HCl/Acetaminophen [Percocet 5-325 mg Tablet] 1 - 2 each PO Q4H PRN # 10 tablet 03/16/19 [Rx] Past Medical History - Past Health History Medical/Surgical History: Denies Medical/Surgical History : 1 Para: 1 - Past Surgical History HEENT Surgical History: Reports: Oral Surgery Other HEENT Surgeries/Procedures: Zanoni teeth removed 2013 Social & Family History - Family History Family Medical History: Noncontributory - Tobacco Use Smoking Status *Q: Never Smoker - Caffeine Use Caffeine Use: Reports: Other Other Caffeine Use: occasional soda/coffee - Recreational Drug Use Recreational Drug Use: No - Living Situation & Occupation Living situation: Reports: Single Occupation: Employed ED ROS GENERAL - Review of Systems Review Of Systems: See Below Constitutional: Reports: Chills, Malaise, Decreased Appetite HEENT: Reports: No Symptoms Respiratory: Reports: No Symptoms Cardiovascular: Reports: No Symptoms Endocrine: Reports: No Symptoms GI/Abdominal: Reports: Abdominal Pain, Diarrhea (See history of present illness) : Reports: No Symptoms Musculoskeletal: Reports: No Symptoms Skin: Reports: No Symptoms Neurological: Reports: No Symptoms Psychiatric: Reports: No Symptoms Hematologic/Lymphatic: Reports: No Symptoms Immunologic: Reports: No Symptoms ED EXAM, GI/ABD - Physical Exam Exam: See Below Exam Limited By: No Limitations General Appearance: Alert, WD/WN, Mild Distress Eyes: Bilateral: Normal Appearance Throat/Mouth: Normal Inspection, Normal Oropharynx (No scleral icterus), Other Head: Atraumatic, Normocephalic (Tongue is mildly dry.) Neck: Normal Inspection, Supple, Non-Tender, Full Range of Motion. No: Lymphadenopathy (L), Lymphadenopathy (R) Respiratory/Chest: No Respiratory Distress, Lungs Clear, Normal Breath Sounds, No Accessory Muscle Use, Chest Non-Tender Cardiovascular: Normal Peripheral Pulses, Regular Rate, Rhythm, No Edema, No Gallop, No Murmur, No Rub GI/Abdominal Exam: No Organomegaly, No Distention, No Mass, Pelvis Stable, Guarding, Tender (Tenderness well localized to), Abnormal Bowel Sounds (Bowel sounds are mildly hyperactive in all 4 quadrants.). No: Rigid ( the right costal margin with a positive Smalls's sign. She is guarding in this area.), Rebound Back Exam: Normal Inspection, Full Range of Motion. No: CVA Tenderness (L), CVA Tenderness (R) Extremities: Normal Inspection, Normal Range of Motion, Non-Tender Neurological: Alert, Oriented, CN II-XII Intact, Normal Cognition, Normal Gait Psychiatric: Normal Affect, Normal Mood Skin Exam: Warm, Dry, Intact, Normal Color, No Rash Course - Vital Signs Last Recorded V/S: Last Vital Signs Temp 36.3 C 03/16/19 07:18 Pulse 58 L 03/16/19 09:45 Resp 16 03/16/19 09:45 BP 108/76 03/16/19 09:45 Pulse Ox 98 03/16/19 09:45 - Orders/Labs/Meds Labs: Laboratory Tests 03/16/19 03/16/19 Range/Units 08:15 08:15 WBC 9.06 (3.98-10.04) K/mm3 RBC 4.85 (3.98-5.22) M/mm3 Hgb 14.2 D (11.2-15.7) gm/L Hct 41.9 (34.1-44.9) % MCV 86.4 (79.4-94.8) fl MCH 29.3 (25.6-32.2) pg MCHC 33.9 (32.2-35.5) g/dl RDW Std Deviation 38.0 (36.4-46.3) fL Plt Count 319 (182-369) K/mm3 MPV 9.7 (9.4-12.3) fl Neutrophils % (Manual) 67 H (40-60) % Band Neutrophils % 0 (0-10) % Lymphocytes % (Manual) 22 (20-40) % Atypical Lymphs % 0 % Monocytes % (Manual) 10 (2-10) % Eosinophils % (Manual) 1 (0.7-5.8) % Basophils % (Manual) 0 L (0.1-1.2) Platelet Estimate Adequate RBC Morph Comment Normal Sodium 141 (136-145) mEq/L Potassium 3.7 (3.5-5.1) mEq/L Chloride 104 (98-107) mEq/L Carbon Dioxide 28 (21-32) mEq/L Anion Gap 12.7 (5-15) BUN 13 (7-18) mg/dL Creatinine 0.8 (0.55-1.02) mg/dL Est Cr Clr Drug Dosing 98.88 mL/min Estimated GFR (MDRD) > 60 (>60) mL/min BUN/Creatinine Ratio 16.3 (14-18) Glucose 74 (74-106) mg/dL Calcium 9.5 (8.5-10.1) mg/dL Total Bilirubin 0.3 (0.2-1.0) mg/dL AST 14 L (15-37) U/L ALT 17 (14-59) U/L Alkaline Phosphatase 73 (46-116) U/L C-Reactive Protein 0.5 (<1.0) mg/dL Total Protein 8.1 (6.4-8.2) g/dl Albumin 4.3 (3.4-5.0) g/dl Globulin 3.8 gm/dL Albumin/Globulin Ratio 1.1 (1-2) Lipase 309 (73-393) U/L Meds: Medications Discontinued Medications Generic Name Dose Route Start Last Admin Trade Name Jesusq PRN Reason Stop Dose Admin Hydromorphone HCl 0.5 mg 03/16/19 07:35 03/16/19 08:16 Dilaudid IVPUSH 03/16/19 07:36 0.5 mg ONETIME ONE Administration Hydromorphone HCl 1 mg 03/16/19 08:43 03/16/19 08:46 Dilaudid IVPUSH 03/16/19 08:44 1 mg ONETIME ONE Administration Hydromorphone HCl Confirm 03/16/19 08:44 Dilaudid Administered 03/16/19 08:45 Dose 1 mg .ROUTE .STK-MED ONE Hyoscyamine 0.125 mg 03/16/19 07:44 03/16/19 08:14 Hyomax-Sl SL 03/16/19 07:45 0.125 mg ONETIME ONE Administration Dextrose/Sodium Chloride 1,000 mls @ 500 mls/hr 03/16/19 07:45 03/16/19 08:14 Dextrose 5%-Normal Saline IV 500 mls/hr ASDIRECTED GERARD Administration Ondansetron HCl 4 mg 03/16/19 07:34 03/16/19 08:15 Zofran IVPUSH 03/16/19 07:35 4 mg ONETIME ONE Administration - Radiology Interpretation Free Text/Narrative:: 28-year-old female presents to the ED with diffuse upper abdominal pain since 11 :00 last night. Patient has known cholelithiasis and is awaiting surgical consultation for possible laparoscopic cholecystectomy. She's had no previous abdominal surgeries. States she's been putting up with intermittent gallbladder attacks for the last 2 years since the of her youngster. Examination reveals bowel sounds slightly active in all 4 quadrants. She is very tender right upper quadrant and then with positive Smalls's sign compare with biliary colic. Lab routine labs to rule out pancreatitis or common bile duct obstruction. She'll be given Levsin sublingual 0.125 mg now and repeat in 10 minutes. IV will be D5 normal saline at 500 mils per hour. Given Zofran 4 mg IV with Dilaudid 0.5 mg IV for pain relief. Labs as mentioned above. - Re-Assessments/Exams Free Text/Narrative Re-Assessment/Exam: 03/16/19 08:25 KUB reveals some increased stool in the cecum. The gallbladder itself does appear to be very distended on plain film. No obvious gallstones were appreciated. Small amount of stool in the rectal vault. Otherwise bowel gas pattern is normal. She has an IUD in the uterus. 03/16/19 08:43 she reports no pain relief with the Levsin 2 tablets and the initial dose of Dilaudid 0.5 mg IV. Will give Dilaudid 1 mg IV at this time. Labs are pending. 03/16/19 09:02 Labs reveal a normal white count at 9.06. 67% neutrophils and no band cells reported. Hemoglobin is 14.2. Hematocrit is 41.9. Platelet count is 319,000. Sodium 141 with a potassium of 3.7. Chloride 104 with a bicarbonate of 28. And a gap is 12.7. BUN is 13 with a creatinine of 0.8. GFR is greater than 60. Glucose is 74. Calcium is 9.5 total bilirubin 0.3. AST is 14 with an ALT of 17. Alk phosphatase is 73. C-reactive protein is 0.5. Total protein is 8.1 with an albumin fraction of 4.3. Lipase is 309. 03/16/19 09:24 she reports pain is gone. Not near as tender right upper quadrant on examination. She needs to have her gallbladder removed. She is seeking surgical consultation probably with Dr. Musa. I will send her home with scripts for Zofran 4 mg sublingual every 6 4 hours. For nausea relief. Bentyl 20 mg every 6 hours as needed for repeat gallbladder attack and Percocet 5/325 mg tablet 1 or 2 at onset of gallbladder attack. 10 tablets provided Departure - Departure Time of Disposition: 09:25 Disposition: Home, Self-Care 01 Condition: Fair Clinical Impression: Recurrent biliary colic - Discharge Information *PRESCRIPTION DRUG MONITORING PROGRAM REVIEWED*: No *COPY OF PRESCRIPTION DRUG MONITORING REPORT IN PATIENT NORMAN: No Prescriptions: Dicyclomine [Bentyl] 20 mg PO Q6H PRN #5 tablet PRN Reason: Abdominal cramps/diarrhea Ondansetron [Zofran] 4 mg BUCCAL Q6H PRN #8 tab PRN Reason: nausea or vomiting oxyCODONE HCl/Acetaminophen [Percocet 5-325 mg Tablet] 1 - 2 each PO Q4H PRN # 10 tablet PRN Reason: pain relief. Instructions: Biliary Colic, Adult Referrals: Sherin Escalera PA-C [Primary Care Provider] - Forms: ED Department Discharge, ED Return to Work/School Form Additional Instructions: Evaluation the emergency room this morning in regards to recurrent gallbladder attack with severe right upper quadrant and upper abdominal pain. Known multiple gallstones in the gallbladder by previous ultrasound. Examination reveals marked tenderness in the right upper quadrant of the abdomen compatible with a gallbladder attack. X-ray of the abdomen did not show anything specific other some mildly increased stool in the lower right colon. Lab tests were also did not reveal any evidence of pancreatitis or biliary tree obstruction. Initial doses of Levsin given sublingual did not help the pain at all and initial dose of Dilaudid did not help either. Second dose of Dilaudid 1 mg did seem to help alleviate the pain completely. You do need to follow-up with a surgeon to have her gallbladder removed in the near future. Avoid all fatty foods and high protein foods until you can get her gallbladder removed. I did write prescriptions for medication and tissue get a repeat gallbladder attack before you can get it removed. Take Zofran 4 mg under the tongue and Bentyl 20 mg by mouth and Percocet 5/325 mg usually 2 tablets at onset of gallbladder attack to see if he can get it under control. If this fails then return to the ED.
[2019-03-16] MEDS ORDERED: Ondansetron 4 MG/2 ML SDV IVPUSH ONE (07:34)
[2019-03-16] MEDS ORDERED: HYDROmorphone 1 MG/ML Syringe IVPUSH ONE ×2 (07:35→08:43)
[2019-03-16] MEDS ORDERED: Hyoscyamine 0.125 MG Tab.SL SL ONE (07:44)
[2019-03-16] MEDS ORDERED: Dextrose 5%-0.9% NaCl 1,000 ML IV SCH (07:45)
--- NOTE | 2019-03-16 08:27 | CR ---
Abdomen: Supine view of the abdomen was obtained. Incidental IUD is noted within the pelvis. Bowel gas pattern is normal. No soft tissue abnormality is seen. No abnormal calcifications are present. No discrete bony abnormality is seen. Impression: 1. Incidental findings. Diagnostic code #2
[2019-03-16] MEDS ORDERED: HYDROmorphone 1 MG/ML Syringe ONE (08:44)
[2019-03-16 10:02] VITALS: BP 108/76
== END 2019-03-16 09:45 | disposition home or self-care (01) ==
LOC: JD.ED 07:09
DX: K80.50 Calculus of bile duct without cholangitis or cholecystitis without obstruction (principal); Z79.82 Long term (current) use of aspirin; Z79.899 Other long term (current) drug therapy; Z91.030 Bee allergy status
CPT/HCPCS: 36415; 74018; 80053; 83690; 85007; 85027; 86140; 96361; 96374; 96375; 99284; A9270; J1170; J2405; J7042